=== PATIENT | male | born 1995 | race Caucasian/White ===

== ENCOUNTER 2016-06-22 10:43 | Emergency (ER) | payer BC ==
--- NOTE | 2016-06-22 12:04 | ED ---
GI/ HPI - HPI Summary HPI Summary: 21 M presents with left testicular pain two weeks. Pain has been the same since started. Pain is alleviated with testicular elevation. No history of cryptorchidism. No fever or mass felt. pain is greatest over spermatic cord. Denies any history of STDs or chance has history of STDs. Denies any dysuria, hematuria, or testicular discharge. - History of Current Complaint Chief Complaint: EDUrogenitalProblems Time Seen by Provider: 06/22/16 11:04 Stated Complaint: TESTICULAR PAIN Pain Intensity: 1 - Allergy/Home Medications Allergies/Adverse Reactions: Allergies Allergy/AdvReac Type Severity Reaction Status Date / Time No Known Allergies Allergy Unverified 06/22/16 10:46 PMH/Surg Hx/FS Hx/Imm Hx Endocrine/Hematology History: Denies: Hx Diabetes, Hx Thyroid Disease Cardiovascular History: Denies: Hx Congestive Heart Failure, Hx Deep Vein Thrombosis, Hx Hypercholesterolemia, Hx Hypertension, Hx Myocardial Infarction, Hx Pacemaker/ ICD, Hx Peripheral Vascular Disease, Other Cardiovascular Problems/Disorders Respiratory History: Denies: Hx Asthma, Hx Chronic Obstructive Pulmonary Disease (COPD), Hx Lung Cancer, Hx Pneumonia, Hx Pulmonary Embolism, Other Respiratory Problems/ Disorders GI History: Denies: Hx Gall Bladder Disease, Hx Gastrointestinal Bleed, Hx Ulcer, Hx Urosepsis History: Denies: Hx Kidney Stones, Hx Renal Disease Musculoskeletal History: Denies: Hx Arthritis, Hx Osteoporosis Sensory History: Denies: Hx Cataracts, Hx Contacts or Glasses, Hx Glaucoma Opthamlomology History: Denies: Hx Cataracts, Hx Contacts or Glasses, Hx Glaucoma Neurological History: Denies: Hx Dementia, Hx Headaches, Hx Migraine, Hx Seizures, Hx Transient Ischemic Attacks (TIA) Psychiatric History: Denies: Hx Anxiety, Hx Depression, Hx Schizophrenia, Hx Bipolar Disorder - Surgical History Surgery Procedure, Year, and Place: Nasal Surgery for polyps 2003 Infectious Disease History: No Infectious Disease History: Denies: Traveled Outside the [place] in Last 30 Days - Family History Known Family History: Positive: Cardiac Disease, Hypertension - Social History Alcohol Use: Occasionally Hx Substance Use: No Substance Use Type: Reports: None Hx Tobacco Use: No Smoking Status (MU): Never Smoked Tobacco Review of Systems Negative: Fever Negative: Cough Negative: Abdominal Pain Positive: other - left side testicular pain. Negative: dysuria All Other Systems Reviewed And Are Negative: Yes Physical Exam Triage Information Reviewed: Yes Vital Signs On Initial Exam: Initial Vitals Temp Pulse Resp BP Pulse Ox 98.9 F 83 16 131/75 100 06/22/16 10:46 06/22/16 10:46 06/22/16 10:46 06/22/16 10:46 06/22/16 10:46 Vital Signs Reviewed: Yes Appearance: Positive: Well-Appearing Skin: Positive: Warm, Dry Head/Face: Positive: Normal Head/Face Inspection Eyes: Positive: Normal, Conjunctiva Clear ENT: Positive: Normal ENT inspection, Pharynx normal, TMs normal Respiratory/Lung Sounds: Positive: Clear to Auscultation, Breath Sounds Present Cardiovascular: Positive: Normal, RRR Abdomen Description: Positive: Nontender, Soft Bowel Sounds: Positive: Present Male Genital Exam: Positive: normal genitalia, no hernia. Negative: epididymal tenderness, scrotum tenderness (L), testicular tenderness (L), urethral discharge Diagnostics - Vital Signs Vital Signs Temp Pulse Resp BP Pulse Ox 06/22/16 10:46 98.9 F 83 16 131/75 100 - Laboratory Lab Statement: Any lab studies that have been ordered have been reviewed, and results considered in the medical decision making process. - Ultrasound No standard instances Ultrasound Interpretation: No Acute Changes - Other: There may be a small left inguinal hernia containing fat. IMPRESSION: NO EVIDENCE OF TESTICULAR MASS OR TORSION Ultrasound Interpretation Completed By: Radiologist SOBIA Course/Dx - Course Course Of Treatment: 21M presents with testicular pain for 2 weeks on left side , alleviated with elevation, on exam does not have any tenderness on exam and no swelling or erythema noted, u/s normal shows potenital hernia, do not feel hernia on exam, u/a normal, patient declined STD testing stating no chance, will have follow up with primary, patient understands and agrees with plan - Diagnoses Differential Diagnoses - Male: Testicular Torsion, Urinary Tract Infection, Other - epididmytitis Provider Diagnoses: Testicular pain, left Discharge - Discharge Plan Condition: Good Disposition: HOME Patient Education Materials: Testicle Pain (ED) Referrals: Cliff High MD [Primary Care Provider] - Additional Instructions: Follow up with primary within 5 days Take Tylenol or ibuprofen for pain every 6 hours Ice, elevate area Return to ED if unable to urinate or any new or worsening symptoms
--- NOTE | 2016-06-22 12:07 | RAD ---
INDICATION: Left testicular pain COMPARISON: None TECHNIQUE: Duplex interrogation of the scrotum was performed. FINDINGS: Testicles: The testicles are Normal in size and echogenicity. There is no evidence of testicular mass. There is symmetric flow on Doppler interrogation. There is no evidence of torsion.. The right testis measures 4.7 x 2.8 x 2.8 cm and the left 4.7 x 2.8 x 2.7 cm. There is symmetric flow on Doppler interrogation. Epididymides: There is no evidence of an epididymal mass. The epididymides are normal in size. There is symmetric flow on Doppler interrogation. The right epididymal head measures 0.9 x 1.0 cm and the left 0.7 x 1.2 cm. Hydroceles: Trace bilateral. Varicoceles: None. Other: There may be a small left inguinal hernia containing fat. IMPRESSION: NO EVIDENCE OF TESTICULAR MASS OR TORSION
[2016-06-22 12:08] LABS: Urine Bilirubin Negative (Negative); Urine Glucose Negative (Negative); Urine Nitrite Negative (Negative)
[2016-06-22 12:56] VITALS: BP 102/66
== END 2016-06-22 12:55 | disposition home or self-care (01) ==
LOC: ED 10:43
DX: N50.812 Left testicular pain (principal)
CPT/HCPCS: 76870; 81003; 99281

== ENCOUNTER 2016-12-01 21:40 | Emergency (ER) | payer BC ==
[2016-12-01 21:51] VITALS: BP 120/57
[2016-12-01] MEDS ORDERED: Polymyx/Trimethoprim OPTH* 10 ML BTL BOTH EYES ONE (22:23)
--- NOTE | 2016-12-01 22:30 | UC ---
Throat Pain/Nasal Julian HPI - HPI Summary HPI Summary: Sore throat for a couple of days and purulent eye drainage left worse than right for 2 days - History of Current Complaint Chief Complaint: UCEye Stated Complaint: EYE INFECTION Time Seen by Provider: 12/01/16 22:14 Hx Obtained From: Patient Onset/Duration: Sudden Onset, Lasting Days - 2, Still Present Severity: Moderate Pain Intensity: 5 Pain Scale Used: 0-10 Numeric Cough: None Associated Signs & Symptoms: Positive: Nasal Discharge Related History: Seasonal Allergies - Allergies/Home Medications Allergies/Adverse Reactions: Allergies Allergy/AdvReac Type Severity Reaction Status Date / Time No Known Allergies Allergy Unverified 12/01/16 21:52 Home Medications: Home Medications Loratadine [Claritin 10 MG CAP] 12/01/16 [History Confirmed 12/01/16] PMH/Surg Hx/FS Hx/Imm Hx Previously Healthy: Yes Other History Of: Negative For: HIV, Hepatitis B, Hepatitis C - Surgical History Surgical History: Yes Surgery Procedure, Year, and Place: Nasal Surgery for polyps 2003 - Family History Known Family History: Positive: Cardiac Disease, Hypertension - Social History Occupation: Employed Full-time Lives: With Family Alcohol Use: Occasionally Substance Use Type: None Smoking Status (MU): Never Smoked Tobacco - Immunization History Vaccination Up to Date: Yes Review of Systems Constitutional: Negative Skin: Negative Eyes: Drainage, Eye Redness ENT: Sore Throat Respiratory: Negative Cardiovascular: Negative Gastrointestinal: Negative Genitourinary: Negative Motor: Negative Neurovascular: Negative Musculoskeletal: Negative Neurological: Negative Psychological: Negative All Other Systems Reviewed And Are Negative: Yes Physical Exam Triage Information Reviewed: Yes Appearance: Well-Appearing, No Pain Distress, Well-Nourished Vital Signs: Initial Vital Signs Temp 96.9 F 12/01/16 21:49 Pulse 69 12/01/16 21:49 Resp 12 12/01/16 21:49 BP 120/57 12/01/16 21:49 Pulse Ox 100 12/01/16 21:49 Vital Signs Reviewed: Yes Eye Exam: Normal Eyes: Positive: Conjunctiva Clear ENT Exam: Normal ENT: Positive: Normal ENT inspection, Hearing grossly normal, Pharynx normal, TMs normal. Negative: Nasal congestion, Nasal drainage, Trismus, Muffled/ hoarse voice Dental Exam: Normal Neck exam: Normal Neck: Positive: Supple, Nontender, No Lymphadenopathy Respiratory Exam: Normal Respiratory: Positive: Chest non-tender, Lungs clear, Normal breath sounds, No respiratory distress, No accessory muscle use Cardiovascular Exam: Normal Cardiovascular: Positive: RRR, No Murmur, Pulses Normal, Brisk Capillary Refill Musculoskeletal Exam: Normal Musculoskeletal: Positive: Strength Intact, ROM Intact, No Edema Neurological Exam: Normal Neurological: Positive: Alert, Muscle Tone Normal Psychological Exam: Normal Skin Exam: Normal Diagnostics - Laboratory Diagnostic Studies Completed/Ordered: RST (-) Throat Pain/Nasal Course/Dx - Course Assessment/Plan: polytrim opthalmic, cool compress, follow with pcp prn - Differential Dx/Diagnosis Differential Diagnosis/HQI/PQRI: Laryngitis, Otitis Media, Pharyngitis, Sinusitis, URI, Other - conjuctivitis Provider Diagnoses: Bilateral Conjuctivitis Discharge - Discharge Plan Condition: Stable Disposition: HOME Patient Education Materials: Conjunctivitis (ED), How to Use Eye Drops (ED) Referrals: Cliff High MD [Primary Care Provider] - If Needed
== END 2016-12-01 22:37 | disposition home or self-care (01) ==
LOC: UCEAST 21:40
DX: H10.9 Unspecified conjunctivitis (principal)
CPT/HCPCS: 87651; 99212; G0463

== ENCOUNTER 2017-04-15 19:38 | Emergency (ER) | payer BC ==
[2017-04-15 19:48] VITALS: BP 130/69
--- NOTE | 2017-04-15 20:34 | UC ---
Skin Complaint HPI - HPI Summary HPI Summary: Pt presents for ?bug bite to left lower back. He tells me that he first noticed this area be red and mildly tender earlier today. He does have associated very mild pain radiating down to his left hip. He tells me that he has been bitten by many ticks in the past and is wondering if this is a rash consistent with lyme disease. He also mentions that they have been seeing many spiders and various insects in their house the last few weeks. Denies fever, chills, SOB, chest pain, abdominal pain, headache, N/V/D/C, joint pain, or rashes elsewhere. - History of Current Complaint Chief Complaint: UCSkin Time Seen by Provider: 04/15/17 20:34 Stated Complaint: BUG BITE Hx Obtained From: Patient - Allergy/Home Medications Allergies/Adverse Reactions: Allergies Allergy/AdvReac Type Severity Reaction Status Date / Time No Known Allergies Allergy Unverified 04/15/17 19:48 Review of Systems Constitutional: Negative Skin: Other - Lesions left lower back Respiratory: Negative Cardiovascular: Negative Gastrointestinal: Negative All Other Systems Reviewed And Are Negative: Yes PMH/Surg Hx/FS Hx/Imm Hx Previously Healthy: Yes Other History Of: Negative For: HIV, Hepatitis B, Hepatitis C - Surgical History Surgical History: Yes Surgery Procedure, Year, and Place: Nasal Surgery for polyps 2003 - Family History Known Family History: Positive: Cardiac Disease, Hypertension - Social History Occupation: Student Lives: With Family Alcohol Use: Occasionally Substance Use Type: None Smoking Status (MU): Never Smoked Tobacco - Immunization History Vaccination Up to Date: Yes Physical Exam Triage Information Reviewed: Yes Appearance: Well-Appearing, No Pain Distress, Well-Nourished Vital Signs: Initial Vital Signs Temp 98.0 F 04/15/17 19:45 Pulse 103 04/15/17 19:45 Resp 18 04/15/17 19:45 BP 130/69 04/15/17 19:45 Pulse Ox 100 04/15/17 19:45 Vital Signs Reviewed: Yes Neck: Positive: Supple, Nontender, No Lymphadenopathy Respiratory: Positive: Chest non-tender, Lungs clear, Normal breath sounds, No respiratory distress, No accessory muscle use Cardiovascular: Positive: RRR, No Murmur, Pulses Normal Musculoskeletal: Positive: Strength Intact - Left LE/hip, ROM Intact - Left LE/ hip, No Edema Skin: Positive: Other - There is an approx 2cm area linear area of mild erythema along the left lower hip/back. Centrally there is a <1mm scab with no definitive teeth/fang melara. No streaking, edema, drainage, or tenderness. Course/Dx - Course Course Of Treatment: Suspect benign insect bite of unknown origin vs atypical early varicella zoster. Advised patient to monitor and apply cool compresses to the site. If area becomes increasing red, swollen, or painful or if he developes a fever to return to clinic or go to ED. - Differential Diagnoses - Skin Complaint Differential Diagnoses: Eczema, Scabies, Tick Born Illness, Varicella Zoster - Diagnoses Provider Diagnoses: Insect bite left lower back Discharge - Discharge Plan Condition: Stable Disposition: HOME Patient Education Materials: Insect Bite or Sting (ED) Referrals: No Primary Care Phys,NOPCP [Primary Care Provider] - Additional Instructions: If you develop a fever, SOB, chest pain, new or worsening symptoms - please call your PCP or go to the ED. 1) Cool compresses to the area and avoid scratching or squeezing. 2) If the area increases in size, redness, pain, swelling, or if you develop similar lesions around this area - please call your PCP or return to Urgent Care.
== END 2017-04-15 21:00 | disposition home or self-care (01) ==
LOC: UCEAST 19:38
DX: S30.860A Insect bite (nonvenomous) of lower back and pelvis, initial encounter (principal); W57.XXXA Bitten or stung by nonvenomous insect and other nonvenomous arthropods, initial encounter; Y93.9 Activity, unspecified; Y92.9 Unspecified place or not applicable; Y99.9 Unspecified external cause status
CPT/HCPCS: 99211; G0463

== ENCOUNTER 2017-11-22 13:22 | Emergency (ER) | payer BC ==
[2017-11-22 14:12] VITALS: BP 135/73
--- NOTE | 2017-11-22 14:52 | UC ---
Complaint Male HPI - HPI Summary HPI Summary: C/O red bumps on the penis over the last week. Has had unprotected intercourse. - History of Current Complaint Chief Complaint: UCSkin Stated Complaint: PERSONAL Time Seen by Provider: 11/22/17 14:41 Hx Obtained From: Patient Onset/Duration: Gradual Onset, Lasting Weeks, Still Present Timing: Constant Severity Initially: Mild Severity Currently: Mild Pain Intensity: 0 Location: Penis - small bumps around penis shaft Aggravating Factor(s): Nothing Alleviating Factor(s): Nothing Associated Signs And Symptoms: Negative: Fever, Hematuria, Dysuria, Penile Swelling, Penile Discharge - Allergies/Home Medications Allergies/Adverse Reactions: Allergies Allergy/AdvReac Type Severity Reaction Status Date / Time No Known Allergies Allergy Unverified 04/15/17 19:48 PMH/Surg Hx/FS Hx/Imm Hx Previously Healthy: Yes Other History Of: Negative For: HIV, Hepatitis B, Hepatitis C - Surgical History Surgical History: Yes Surgery Procedure, Year, and Place: Nasal Surgery for polyps 2003. T&A - Family History Known Family History: Positive: Cardiac Disease, Hypertension Negative: Diabetes - Social History Occupation: Employed Full-time Lives: With Family Alcohol Use: Occasionally Substance Use Type: None Smoking Status (MU): Never Smoked Tobacco Have You Smoked in the Last Year: No - Immunization History Vaccination Up to Date: Yes Review of Systems Skin: Rash - on penis Is Patient Immunocompromised?: No All Other Systems Reviewed And Are Negative: Yes Physical Exam Triage Information Reviewed: Yes Appearance: Well-Appearing, No Pain Distress, Well-Nourished Vital Signs: Initial Vital Signs Temp 98.2 F 11/22/17 14:07 Pulse 73 11/22/17 14:07 Resp 16 11/22/17 14:07 BP 135/73 11/22/17 14:07 Pulse Ox 100 11/22/17 14:07 Vital Signs Reviewed: Yes Eyes: Positive: Conjunctiva Clear Neck exam: Normal Respiratory Exam: Normal Cardiovascular Exam: Normal Male Genital Exam: Positive: Normal Genitalia, Lesions - 2-3mm papules on the shaft of the penis Musculoskeletal Exam: Normal Neurological Exam: Normal Psychological Exam: Normal Skin Exam: Normal Complaint Male Course/Dx - Differential Dx/Diagnosis Differential Diagnosis/HQI/PQRI: Epididymitis, Pyelonephritis, Urinary Tract Infection Provider Diagnoses: Genital Warts Discharge - Sign-Out/Discharge Documenting (check all that apply): Patient Departure - Discharge Plan Condition: Stable Disposition: HOME Prescriptions: Imiquimod 1 applic TOPICAL BEDTIME #12 pkt Patient Education Materials: Genital Warts (ED), Imiquimod (On the skin) Referrals: No Primary Care Phys,NOPCP [Primary Care Provider] - - Billing Disposition and Condition Condition: STABLE Disposition: Home
== END 2017-11-22 15:09 | disposition home or self-care (01) ==
LOC: UCCORT 13:22
DX: A63.0 Anogenital (venereal) warts (principal)
CPT/HCPCS: 99212; G0463

== ENCOUNTER 2018-11-09 08:00 | Emergency (ER) | payer BC ==
--- NOTE | 2018-11-09 08:08 | UC ---
Skin Complaint HPI - HPI Summary HPI Summary: 23 yo male presents with puncture wound to left foot. He tells me that last night he was walking outside barefoot and stepped on a pine branch. A piece of the pine needle punctured his left foot. He removed the needle and thinks he got it all, but is unsure. This morning he noticed the area was red, warm, and swollen. Does have a red streak across the bottom of his foot. Last tetanus was 2005. Denies fever or chills. - History of Current Complaint Time Seen by Provider: 11/09/18 08:08 Stated Complaint: PUNCTURE WOUND TO FOOT Hx Obtained From: Patient Onset/Duration: Sudden Onset Onset Severity: Moderate Current Severity: Mild Pain Intensity: 2 Pain Scale Used: 0-10 Numeric - Allergy/Home Medications Allergies/Adverse Reactions: Allergies Allergy/AdvReac Type Severity Reaction Status Date / Time No Known Allergies Allergy Unverified 04/15/17 19:48 PMH/Surg Hx/FS Hx/Imm Hx - Additional Past Medical History Additional PMH: Chronic sinusitis Other History Of: Negative For: HIV, Hepatitis B, Hepatitis C - Surgical History Surgical History: Yes Surgery Procedure, Year, and Place: Nasal Surgery for polyps 2003. T&A - Family History Known Family History: Positive: Cardiac Disease, Hypertension Negative: Diabetes - Social History Lives: With Family Alcohol Use: Occasionally Substance Use Type: None Smoking Status (MU): Never Smoked Tobacco Have You Smoked in the Last Year: No - Immunization History Vaccination Up to Date: Yes Review of Systems All Other Systems Reviewed And Are Negative: Yes Constitutional: Positive: Negative Skin: Positive: Other - Puncture wound left foot Respiratory: Positive: Negative Cardiovascular: Positive: Negative Neurovascular: Positive: Negative Neurological: Positive: Negative Psychological: Positive: Negative Physical Exam - Summary Physical Exam Summary: GENERAL: NAD. WDWN. No pain distress. SKIN: LEFT FOOT: Plantar aspect near 5th MTP with 3.0cm area of mild erythema, warmth, and firmness. Thin red streak along plantar aspect extending to the medial side of the foot. No open wound, drainage, or tenderness. No FB appreciated CHEST: No accessory muscle use. Breathing comfortably and in no distress. CV: Pulses intact. Cap refill <2seconds MSK: Left foot: FROM and moves all toes without pain NEURO: Alert. PSYCH: Age appropriate behavior. Triage Information Reviewed: Yes Vital Signs: Vital Signs: Temp Pulse Resp BP Pulse Ox 98.2 F 68 18 123/60 100 11/09/18 08:07 11/09/18 08:07 11/09/18 08:07 11/09/18 08:07 11/09/18 08:07 Vital Signs Reviewed: Yes Course/Dx - Course Course Of Treatment: XR: REPORT AND IMPRESSION: #. Soft tissue swelling along the plantar aspect of the foot at the forefoot. No conspicuous foreign body or subcutaneous emphysema evident. #. Negative for fracture or malalignment. tdap updated today. Suspect wound infection due to puncture. Will place him on keflex and have him f /u if symptoms do not improve within 2 days. - Diagnoses Provider Diagnosis: Puncture wound of foot Discharge - Sign-Out/Discharge Documenting (check all that apply): Patient Departure All imaging exams completed and their final reports reviewed: Yes - Discharge Plan Condition: Stable Disposition: HOME Prescriptions: Cephalexin CAP* [Keflex CAP*] 500 mg PO TID #21 cap Patient Education Materials: Soft Tissue Foreign Body (ED), Puncture Wound (DC) Referrals: No Primary Care Phys,NOPCP [Primary Care Provider] - Additional Instructions: If you develop a fever, shortness of breath, chest pain, new or worsening symptoms - please call your PCP or go to the ED immediately. The X-Ray of your foot did not show any foreign body in your skin. Your tetanus shot was updated today. Please take your antibiotic as prescribed and be rechecked if the redness, swelling, or streaking worsen or haven't improved within 2-3 days. - Billing Disposition and Condition Condition: STABLE Disposition: Home
[2018-11-09 08:12] VITALS: BP 123/60
[2018-11-09] MEDS ORDERED: Tetan/Diph/Pertus SYR(Tdap)* 0.5 ML SYR(BOOSTRIX) use SYR IM ONE (08:18)
== END 2018-11-09 08:54 | disposition home or self-care (01) ==
LOC: UCEAST 08:00
DX: S91.332A Puncture wound without foreign body, left foot, initial encounter (principal); W22.8XXA Striking against or struck by other objects, initial encounter; Y92.89 Other specified places as the place of occurrence of the external cause
CPT/HCPCS: 90471; 90715; 99212; G0463

== ENCOUNTER 2019-04-25 15:27 | Emergency (ER) | payer BC ==
[2019-04-25 15:48] VITALS: BP 135/80
[2019-04-25] MEDS ORDERED: Fluorescein Sodium TOPICAL* 1 MG TEST STRIP OPHTHALMIC ONE (15:57)
--- NOTE | 2019-04-25 16:16 | UC ---
Eye Complaint HPI - HPI Summary HPI Summary: 24 yo male with FB sensation under right upper lid x 1 day scant right eye d/c and slight redness no URI symptoms - History of Current Complaint Chief Complaint: UCEye Stated Complaint: EYE COMPLAINT Time Seen by Provider: 04/25/19 15:45 Hx Obtained From: Patient Onset/Duration: Sudden Onset, Lasting Hours Timing: Constant Severity Initially: Mild Severity Currently: Moderate Pain Intensity: 1 Pain Scale Used: 0-10 Numeric Location of Injury: Eye Lid (upper) Character: Foreign Body Sensation Aggravating Factor(s): Nothing Alleviating Factor(s): Nothing Associated Signs And Symptoms: Positive: Drainage (Purulent) - crusty - Allergies/Home Medications Allergies/Adverse Reactions: Allergies Allergy/AdvReac Type Severity Reaction Status Date / Time No Known Allergies Allergy Unverified 04/25/19 15:48 PMH/Surg Hx/FS Hx/Imm Hx Previously Healthy: Yes Other History Of: Negative For: HIV, Hepatitis B, Hepatitis C - Surgical History Surgical History: Yes Surgery Procedure, Year, and Place: Nasal Surgery for polyps 2003. T&A - Family History Known Family History: Positive: Cardiac Disease, Hypertension Negative: Diabetes - Social History Alcohol Use: Occasionally Substance Use Type: None Smoking Status (MU): Never Smoked Tobacco Have You Smoked in the Last Year: No - Immunization History Most Recent Tetanus Shot: 2005 Vaccination Up to Date: Yes Review of Systems All Other Systems Reviewed And Are Negative: Yes Constitutional: Positive: Negative Skin: Positive: Negative Eyes: Positive: Drainage - R, Eye Redness - R ENT: Positive: Negative Respiratory: Positive: Negative Cardiovascular: Positive: Negative Gastrointestinal: Positive: Negative Genitourinary: Positive: Negative Motor: Positive: Negative Neurovascular: Positive: Negative Musculoskeletal: Positive: Negative Neurological: Positive: Negative Psychological: Positive: Negative Physical Exam Triage Information Reviewed: Yes Appearance: Well-Appearing, No Pain Distress, Well-Nourished Vital Signs: Initial Vital Signs Temp 98.1 F 04/25/19 15:44 Pulse 74 04/25/19 15:44 Resp 16 04/25/19 15:44 BP 135/80 04/25/19 15:44 Pulse Ox 99 04/25/19 15:44 Vital Signs Reviewed: Yes Eyes: Positive: Conjunctiva Inflamed - slightly (R). No corneal FB noted, right upper lid everted...no FB noted, no fluorscein uptake , EOMI/PERRL ENT: Positive: Hearing grossly normal. Negative: Nasal congestion, Nasal drainage, Trismus, Hoarse voice Neck: Positive: Supple Respiratory: Positive: Lungs clear, Normal breath sounds, No respiratory distress, No accessory muscle use Cardiovascular: Positive: RRR, No Murmur Musculoskeletal: Positive: ROM Intact, No Edema Neurological: Positive: Alert Psychological Exam: Normal Skin Exam: Normal Eye Complaint Course/Dx - Course Course Of Treatment: advise specialist f/u if still with FB sensation tomorrow I explained it may be a minute FB that I can't seen or a small corneal abrasion - Differential Dx/Diagnosis Provider Diagnosis: Irritation of right eye Discharge ED - Sign-Out/Discharge Documenting (check all that apply): Patient Departure All imaging exams completed and their final reports reviewed: No Studies - Discharge Plan Condition: Stable Disposition: HOME Prescriptions: Polymyx/Trimethoprim OPTH* [Polytrim OPHTH*] 1 - 2 drop RIGHT EYE QID #1 btl Referrals: Jere Mckeon MD [Medical Doctor] - 1 Day Santosh Doyle MD [Medical Doctor] - 1 Day Additional Instructions: I saw no foreign body or abrasion If symptoms persist I suggest you see an eviction specialist tomorrow I suggest you also use ZADITOR eye drops (OTC) - Billing Disposition and Condition Condition: STABLE Disposition: Home
== END 2019-04-25 16:16 | disposition home or self-care (01) ==
LOC: UCEAST 15:27
DX: H57.89 Other specified disorders of eye and adnexa (principal)
CPT/HCPCS: 99212; A9270-GY; G0463